=== PATIENT | female | born 1970 | race Caucasian/White ===

== ENCOUNTER 2017-09-23 20:10 | Emergency (ER) | payer OTHER ==
--- NOTE | 2017-09-23 20:38 | ED.PDOC ---
History of Present Illness - General Chief Complaint: Abdominal Pain Stated Complaint: left lower abd pain Time Seen by Provider: 09/23/17 20:30 Information Source: patient, family Exam Limitations: no limitations - History of Present Illness Initial Comments: LLQ ABD PAIN STARTED TODAY. FEELS SIMILAR TO DIVERTICULITIS BOUT X 2 IN 2013 AND 2015. POS N, ABD PRESSURE, DIARRHEA, DARK RED BLOOD IN STOOL. TOOK OLD FLAGYL RX TODAY AT 10:00 AND 16:00. Abdominal Pain Onset Location: LLQ Pain Radiation: no radiation Quality: severe, cramping, steady Improving Factors: nothing Worsening Factors: eating Associated Symptoms: diarrhea, fever/chills Review of Systems - Review of Systems Constitutional: States: fever. Denies: chills, weakness EENTM: States: no symptoms reported Respiratory: States: no symptoms reported Cardiology: States: no symptoms reported Gastrointestinal/Abdominal: States: abdominal pain, diarrhea, nausea, other - DARK, RED BLOOD IN STOOL. . Denies: constipation, vomiting Genitourinary: Denies: discharge, dysuria, frequency, hematuria Musculoskeletal: States: no symptoms reported Skin: States: no symptoms reported Neurological: States: no symptoms reported Endocrine: States: no symptoms reported Hematologic/Lymphatic: States: no symptoms reported All other Systems: Reviewed and Negative Past Medical History (General) - Patient Medical History Hx Seizures: No Hx Stroke: No Hx Asthma: No Hx of COPD: No Hx Cardiac Disorders: No Hx Congestive Heart Failure: No Hx Pacemaker: No Hx Hypertension: Yes Hx Diabetes: No Hx MRSA: No Surgical History: cholecystectomy, Hysterectomy - Vaccination History Hx Tetanus, Diphtheria Vaccination: No - unknown Hx Influenza Vaccination: Yes - 2014 Hx Pneumococcal Vaccination: No Immunizations Up to Date: Yes - Social History Hx Tobacco Use: No Hx Alcohol Use: No Hx Substance Use: No Hx Substance Use Treatment: No Hx Depression: No Hx Physical Abuse: No Hx Emotional Abuse: No - Female History Patient : No - hysterectomy Family Medical History - Family History Mother Living Status: Still Living Hx Family Hypertension: Yes Hx Family Diabetes: Yes Father Family History: Unknown Living Status: Still Living Hx Family Cancer: Yes Hx Family;Other: prostate cancer Physical Exam - Physical Exam General Appearance: Alert, Obvious distress Eyes, Ears, Nose, Throat Exam: PERRL/EOMI, normal ENT inspection Neck: non-tender, full range of motion Respiratory: chest non-tender, lungs clear Cardiovascular/Chest: normal peripheral pulses, regular rate, rhythm Peripheral Pulses: No deficit Gastrointestinal/Abdominal: normal bowel sounds, soft, no organomegaly, no pulsatile mass, tenderness - LLQ Rectal Exam: deferred Back Exam: no CVA tenderness, no vertebral tenderness Extremity: normal range of motion, normal inspection Neurologic: no motor/sensory deficits, alert, normal mood/affect Skin Exam: normal color, warm/dry Lymphatic: no adenopathy Progress - Progress Progress: 09/23/17 21:31 LABS NEG/WNL: CMP, UA, LACTIC ACID. HCG CANCELLED SINCE H/O HYSTERECTOMY. CBC: WBC NL. ELEV NEUTS. POS LOW GRADE TEMP 99.9. 09/23/17 21:47 CT = LLQ DIVERTICULITIS OF DESCENDING AND SIGMOID COLON. ALSO DIVERTICULOSIS. NO PERITONITIS, ABSCESS, PERFORATION, FREE AIR. VITAL SIGNS WNL, NO LEUKOCYTOSIS, AND ONLY MILD TEMP, THUS IS CLASSFIED UNCOMPLICATED DIVERTICULITIS, THEREFORE OUTPT TX IS INDICATED WITH CLOSE F/U IN 2-3 D. NS BOLUS GIVEN IN ER. RX CIPRO/FLAGYL. 1ST DOSE GIVEN IN ER. IS STABLE AND SAFE FOR D/C TO HOME WITH HER . 09/23/17 21:53 PT WAS INSTRUCTED TO HOLD HER SIMVASTATIN FOR THE NEXT WEEK DURING CIPRO TX D/T CONTRAINDICATION OF SMALL RISK OF RHABDOMYOLYSIS. Departure - Departure Clinical Impression: Diverticulitis large intestine, Nausea, Low grade fever, Diverticulosis of colon, LLQ abdominal pain Disposition: Discharge to Home or Self Care Condition: Good Departure Forms: ED Discharge - Pt. Copy, Patient Portal Self Enrollment Instructions: Diverticulitis (DC) Diet: other - Clear liquid diet until pain resolves. Activity: increase activity as tolerated Referrals: RUBENS TELLO [Primary Care Provider] - 1-2 Days Prescriptions: Ciprofloxacin HCl 750 mg PO Q12HR 7 Days #14 tab metroNIDAZOLE [Flagyl] 500 mg PO Q6H 7 Days #28 tab Home Medications: Ambulatory Orders Lisinopril 10 mg PO BEDTIME 11/17/13 Diclofenac Potassium (Migraine [Cambia] 50 mg PO PRN 11/24/13 tiZANidine [Zanaflex] 4 mg PO BEDTIME 11/24/13 Pantoprazole Tablet [Protonix] 40 mg PO DAILY 01/30/16 Ciprofloxacin HCl 750 mg PO Q12HR 7 Days #14 tab 09/23/17 Simvastatin [Simvastatin] 09/23/17 metroNIDAZOLE [Flagyl] 500 mg PO Q6H 7 Days #28 tab 09/23/17 Additional Instructions: IMPORTANT: Do not take your simvastatin for the next 7 days while you are taking Ciprofloxacin. The combination of the two can cause rhabdomyolysis, which is dangerous breakdown of muscle tissue which can cause kidney damage. Please take the two antibiotics as prescribed. Please go on a clear liquid diet until your pains resolve. Please start a daily probiotic tablet. Take it 2 hours before or after taking the antibiotics (not at the same time as the antibiotics). The probiotic will help to replenish your healthy GI tract bacteria and help prevent C.diff ( another intestinal infection). Please follow-up with your regular doctor in 2-3 days to ensure you are starting to improve. Again, do not take your simvastatin during these next 7 days of antibiotic therapy. Thank you. I hope you feel better soon!
[2017-09-23] MEDS ORDERED: HYDROmorphone HCL INJ 2 MG/ML VIAL IV ONE (20:43)
[2017-09-23] MEDS ORDERED: ONDANSETRON INJ 4 MG/2 ML VIAL IV ONE (20:43)
[2017-09-23] MEDS ORDERED: HYDROmorphone HCL INJ 2 MG/ML VIAL ONE (20:44)
[2017-09-23] MEDS ORDERED: ONDANSETRON INJ 4 MG/2 ML VIAL ONE (20:44)
[2017-09-23] MEDS ORDERED: SODIUM CHLORIDE 0.9% 1000ML 1,000 ML IVS ONE (21:34)
--- NOTE | 2017-09-23 21:35 | CT ---
CT abdomen and pelvis with contrast on 09/23/2017 CLINICAL INDICATION: Left lower quadrant pain TECHNIQUE: Multiple axial images are obtained throughout the abdomen and pelvis following the administration of IV contrast. This exam was performed according to our departmental dose-optimization program, which includes automated exposure control, adjustment of the mA and/or kV according to patient size and/or use of iterative reconstruction technique. Total DLP is 731.53 mGy*cm. COMPARISON: 09/07/2015 FINDINGS: Abdomen: The lung bases are clear. The patient is status post cholecystectomy. The solid abdominal organs are unremarkable. There is no abdominal adenopathy. There is no free fluid or free air within the abdomen. There is diverticulosis. The abdominal portion of the GI tract is otherwise unremarkable. Pelvis: There is fat stranding and bowel wall thickening in the distal descending/sigmoid colon in a region of multiple diverticula consistent with acute diverticulitis. There is no evidence of abscess or perforation. This is similar to the patient's prior diverticulitis but in a different location. The patient is status post hysterectomy. Small amount of free fluid is noted in the pelvis. There is no pelvic adenopathy. The pelvic portion of the GI tract is otherwise unremarkable. No bony abnormality is noted. IMPRESSION: 1. Acute distal descending/sigmoid colon diverticulitis in the left lower quadrant without evidence of abscess or perforation. 2. Otherwise no acute abnormality. Electronically signed by: Federico Ramires 09/23/2017 9:34 PM CDT
[2017-09-23] MEDS ORDERED: CIPROFLOXACIN 500 MG TAB PO ONE (21:52)
[2017-09-23 21:57] VITALS: TEMP 98.5
[2017-09-23] MEDS ORDERED: metroNIDAZOLE 500 MG TAB PO ONE (21:57)
[2017-09-23] MEDS ORDERED: HYDROCOD/APAP 10/325 (ER DISP) # 3 tablets PO ONE (22:50)
[2017-09-23] MEDS ORDERED: HYDROCOD/APAP 10/325 (ER DISP) # 3 tablets ONE (22:51)
[2017-09-23 23:02] VITALS: BP 109/64; O2SAT 98
== END 2017-09-23 23:01 | disposition home or self-care (01) ==
LOC: ER 20:10
DX: K57.32 Diverticulitis of large intestine without perforation or abscess without bleeding (principal); K57.30 Diverticulosis of large intestine without perforation or abscess without bleeding; R50.9 Fever, unspecified; R11.0 Nausea; R19.7 Diarrhea, unspecified
CPT/HCPCS: 36415; 74177; 80053; 81001; 83605; 85025; J1170; J2405; J7030

== ENCOUNTER 2019-09-29 14:09 | Emergency (ER) | payer OTHER ==
--- NOTE | 2019-09-29 14:24 | ED.PDOC ---
History of Present Illness - General Time Seen by Provider: 09/29/19 14:21 - History of Present Illness Initial Comments: 48 F +pmh HTN, HLD presents with spouse to ED c/o acute onset left wrist and left ankle pain s/p fall. Pt states she was walking into her home when she slipped and fell from the ground being wet. She immediately had pain in her wrist and ankle but does continue to walk on it and bear weight. Denies h/o similar sx's. Use of wrist/ankle aggravates pain. Denies numbness/tingling, weakness, loss of sensation, cool extremity. Pt is otherwise healthy with no other signs, symptoms, or complaints. Allergies/Adverse Reactions: Allergies NO KNOWN ALLERGY Allergy (Verified 09/29/19 14:32) Home Medications: Ambulatory Orders Lisinopril 10 mg PO BEDTIME 11/17/13 Diclofenac Potassium (Migraine [Cambia] 50 mg PO PRN 11/24/13 tiZANidine [Zanaflex] 4 mg PO BEDTIME 11/24/13 Pantoprazole Tablet [Protonix] 40 mg PO DAILY 04/01/15 Ciprofloxacin HCl 750 mg PO Q12HR 7 Days #14 tab 09/23/17 Simvastatin 09/23/17 metroNIDAZOLE [Flagyl] 500 mg PO Q6H 7 Days #28 tab 09/23/17 Acetamin W/Cod #3 Tab [Tylenol w/CODEINE #3] 1 ea PO QID PRN #12 tab 09/29/19 Review of Systems - Review of Systems Constitutional: Denies: chills, fever Gastrointestinal/Abdominal: Denies: nausea, vomiting Musculoskeletal: States: joint pain, joint swelling. Denies: back pain, muscle pain, neck pain Skin: Denies: change in color, lesions, rash - left wrist and left ankle pain, both with swelling Neurological: Denies: paresthesia, tingling, weakness Past Medical History (General) - Patient Medical History Hx Seizures: No Hx Stroke: No Hx Asthma: No Hx of COPD: No Hx Cardiac Disorders: No Hx Congestive Heart Failure: No Hx Pacemaker: No Hx Hypertension: Yes Hx Diabetes: No Hx MRSA: No - Vaccination History Hx Tetanus, Diphtheria Vaccination: No - unknown Hx Influenza Vaccination: Yes - 2015 Hx Pneumococcal Vaccination: No - Social History Hx Tobacco Use: No Hx Alcohol Use: No Hx Substance Use: No Hx Substance Use Treatment: No Hx Depression: No Hx Physical Abuse: No Hx Emotional Abuse: No - Female History Patient : No - hysterectomy Physical Exam - Physical Exam General Appearance: Alert, Other - mild distress, non-toxic Head Injury: no evidence of injury Eye Exam: bilateral normal Peripheral Pulses: radial,left: 2+, dorsalis pedis,left: 2+, posterior tibialis,left: 2+ Cardiovascular/Respiratory: regular rate, rhythm, no M/R/G, normal peripheral pulses, no JVD, normal breath sounds, no respiratory distress Extremity Exam: bony-point tenderness - left: no 5th metatarsal TTP or deformity, no ankle pain with ROM, no ankle swelling, fully weight bearing but with pain. left wrist/hand/fingers with full ROM, other - left wrist with mild TTP and trace swelling, left foot with mild TTP to ATFL and strace localized swelling. Both left wrist and left foot: no deformity, no crepitance, no erythema, no abrasion/laceration, skin is soft and compartments soft, <2 cap refill, strength/motor/sensation intact distally. Neurologic: alert, normal mood/affect, oriented x 3 Skin Exam: normal color, warm/dry, other - no rash, no abrasions, no lacerations Progress - Progress Progress: Presents with fracture vs strain/sprain with contusion of wrist and ankle s/p fall. I will perform imaging, provide appropriate pharmacotherapy, and continue to monitor/reassess. Dispo will depend on imaging results and overall course in ED; however, discharge home is expected with f/u, education, and possible rx. 3:13 PM Rechecked pt with family member at bedside. NAD, VSS, and is feeling better with improved pain. I have discussed radiology results, my clinical impression, and diagnosis. I have also discussed plan for discharge home with f/u, education, and prescription pain medication with OTC medications as well as cryotherapy/rest/elevation for pain control. ED return precautions provided. I informed repeat imaging may be necessary in 1 week depending on how she is doing as XRay's are not 100% sensitive after small acute fractures. Pt and family member voice understanding, agree with plan, and all questions answered. Neri Dueñas DO Emergency Medicine Physician [facility] #[id number] - Results/Orders Results/Orders: EXAM DESCRIPTION: Wrist,Left 3 Views CLINICAL HISTORY: fall, pain COMPARISON: None. TECHNIQUE: 3 views left FINDINGS: Osteopenia is observed. Mild distal interphalangeal joint arthritis is seen. Mild degenerative changes are observed in the metacarpal carpal articulation of the first digit. IMPRESSION: Degenerative changes are observed. No fracturing is detected. Electronically signed by: Luis Wilkes MD 09/29/2019 3:06 PM CDT EXAM DESCRIPTION: Foot,Left 3 Views CLINICAL HISTORY: fall, pain COMPARISON: None. TECHNIQUE: 3 views left FINDINGS: A plantar calcaneal spur is observed. No fracturing is detected. Mild degenerative changes are observed in the metatarsal phalangeal joint of the first digit. IMPRESSION: Degenerative changes are observed. No fracturing is detected. Electronically signed by: Luis Wilkes MD 09/29/2019 3:04 PM CDT I have reviewed the above images and radiology read; I agree with the above findings. Departure - Departure Clinical Impression: Contusion of left wrist, initial encounter Strain of left wrist Qualifiers: Encounter type: initial encounter Qualified Code(s): S66.912A - Strain of unspecified muscle, fascia and tendon at wrist and hand level, left hand, initial encounter Sprain of left foot Qualifiers: Encounter type: initial encounter Qualified Code(s): S93.602A - Unspecified sprain of left foot, initial encounter Time of Disposition: 15:09 Disposition: Discharge to Home or Self Care Condition: Excellent Instructions: Contusion (DC), Common Wrist Injuries (DC), Foot Sprain (DC) Diet: resume usual diet Activity: increase activity as tolerated Referrals: RUBENS TELLO [Primary Care Provider] - 1 Week Prescriptions: Acetamin W/Cod #3 Tab [Tylenol w/CODEINE #3] 1 ea PO QID PRN #12 tab PRN Reason: Pain Home Medications: Ambulatory Orders Lisinopril 10 mg PO BEDTIME 11/17/13 Diclofenac Potassium (Migraine [Cambia] 50 mg PO PRN 11/24/13 tiZANidine [Zanaflex] 4 mg PO BEDTIME 11/24/13 Pantoprazole Tablet [Protonix] 40 mg PO DAILY 04/01/15 Ciprofloxacin HCl 750 mg PO Q12HR 7 Days #14 tab 09/23/17 Simvastatin 09/23/17 metroNIDAZOLE [Flagyl] 500 mg PO Q6H 7 Days #28 tab 09/23/17 Acetamin W/Cod #3 Tab [Tylenol w/CODEINE #3] 1 ea PO QID PRN #12 tab 09/29/19 Comments: SECTIONIZER aware reviewed @2035. Narx score 000/000/000 with total risk 000.
[2019-09-29] MEDS: MORPHINE SULFATE INJ 10 MG/ML VIAL IV ONE (14:46)
--- NOTE | 2019-09-29 15:06 | RAD ---
EXAM DESCRIPTION: Foot,Left 3 Views CLINICAL HISTORY: fall, pain COMPARISON: None. TECHNIQUE: 3 views left FINDINGS: A plantar calcaneal spur is observed. No fracturing is detected. Mild degenerative changes are observed in the metatarsal phalangeal joint of the first digit. IMPRESSION: Degenerative changes are observed. No fracturing is detected. Electronically signed by: Luis Wilkes MD 09/29/2019 3:04 PM CDT
--- NOTE | 2019-09-29 15:07 | RAD ---
EXAM DESCRIPTION: Wrist,Left 3 Views CLINICAL HISTORY: fall, pain COMPARISON: None. TECHNIQUE: 3 views left FINDINGS: Osteopenia is observed. Mild distal interphalangeal joint arthritis is seen. Mild degenerative changes are observed in the metacarpal carpal articulation of the first digit. IMPRESSION: Degenerative changes are observed. No fracturing is detected. Electronically signed by: Luis Wilkes MD 09/29/2019 3:06 PM CDT
[2019-09-29 15:47] VITALS: BP 110/66; TEMP 97.2; O2SAT 95
== END 2019-09-29 15:50 | disposition home or self-care (01) ==
LOC: ER 14:09
DX: S66.912A Strain of unspecified muscle, fascia and tendon at wrist and hand level, left hand, initial encounter (principal); S93.602A Unspecified sprain of left foot, initial encounter; I10 Essential (primary) hypertension; W01.0XXA Fall on same level from slipping, tripping and stumbling without subsequent striking against object, initial encounter; Y93.01 Activity, walking, marching and hiking; Y92.009 Unspecified place in unspecified non-institutional (private) residence as the place of occurrence of the external cause; Z79.899 Other long term (current) drug therapy
CPT/HCPCS: 73110; 73630; J2270